=== PATIENT | male | born 1955 | race Caucasian/White ===

== ENCOUNTER 2023-04-29 14:10 | Emergency (ER) | payer OTHER, MEDICAID ==
[~2023-04-29] VITALS: Ht 167.6 cm; Wt 80.9 kg
[2023-04-29 17:02] VITALS: BP 124/62; PULSE 90; RESP 18; TEMP 98.1; O2SAT 98
[2023-04-29] MEDS ORDERED: HYDR-4798 PO (17:53)
[2023-04-29] MEDS ORDERED: IBUP-1455 PO (17:53)
[2023-04-29] MEDS: KETOROLAC TROMETH 60MG/2ML VIAL IM ONE (18:25)
[2023-04-29] MEDS: HYDROcodone-ACET 10/325MG TAB PO ONE (18:25)
== END 2023-04-29 18:33 | disposition home or self-care (01) ==
LOC: EDBD 14:10 → ER 14:10
DX: M25.562 Pain in left knee (principal); M25.561 Pain in right knee; G89.29 Other chronic pain; Z59.00 Homelessness unspecified
CPT/HCPCS: 96372; 99283; J1885

== ENCOUNTER 2023-05-20 17:58 | Emergency (ER) | payer OTHER, MEDICAID ==
[~2023-05-20] VITALS: Ht 167.6 cm; Wt 63.6 kg
[~2023-05-20 17:58] MED LIST: HYDR-4798 PO; IBUP-1455 PO
[2023-05-20 18:04] VITALS: BP 180/76; PULSE 60; RESP 22; O2SAT 95
[2023-05-20] MEDS ORDERED: IBUP-1455 PO (19:49)
[2023-05-20] MEDS ORDERED: HYDR-4798 PO (19:49)
[2023-05-20] MEDS: HYDROcodone-ACET 10/325MG TAB PO ONE (20:32)
== END 2023-05-20 20:33 | disposition home or self-care (01) ==
LOC: EDBD 17:58 → ER 17:58
DX: G89.29 Other chronic pain (principal); M25.562 Pain in left knee; M25.561 Pain in right knee; M54.50 Low back pain, unspecified

== ENCOUNTER 2023-05-21 07:30 | Emergency (ER) | payer OTHER, MEDICAID ==
[~2023-05-21] VITALS: Ht 175.3 cm; Wt 76.3 kg
[2023-05-21 08:02] LABS: Basophils # (auto) 0 10 ^3/uL (0-0.2); Basophils % (auto) 0.6 % (0.0-2.0); Eosinophils # (auto) 0 10 ^3/uL (0-0.8); Eosinophils % (auto) 0.2 % (0.0-7.0); Hematocrit 46.5 % (41.0-53.0); Hemoglobin 15.6 g/dL (13.5-17.5); Lymphocytes # (auto) 2.4 10 ^3/uL (0.4-5.4); Lymphocytes % (auto) 32.4 % (10.0-50.0); Mean Corpuscular Hemoglobin 29.9 pg (28.0-32.0); Mean Corpuscular Hgb Conc. 33.7 g/dL (32.0-36.0); Mean Corpuscular Volume 88.7 fL (80.0-100.0); Monocytes # (auto) 0.7 10 ^3/uL (0-1.3); Neutrophils # (auto) 4.2 10 ^3/uL (1.6-8.6); Neutrophils % (auto) 56.8 % (37.0-80.0); Nucleated Red Blood Cells % 0.3 %; Red Blood Cells 5.23 10^6/uL (4.5-5.90); Red Cell Distribution Width 14.7 % (11.8-14.3); White Blood Cell 7.4 10^3/uL (4.4-10.8)
[2023-05-21 08:26] LABS: Chloride 97 mmol/L (98-107); Potassium 3.7 mmol/L (3.5-5.1); Sodium 134 mmol/L (136-145)
[2023-05-21 08:27] LABS: Anion Gap 8 (5-15); Calcium 9.4 mg/dL (8.5-10.1); Carbon Dioxide 29 mmol/L (20-30)
[2023-05-21 08:32] LABS: BUN/Creatinine Ratio 5.6 (10.0-20.0); Blood Alcohol < 3.0 mg/dL (<10); Blood Urea Nitrogen 5 mg/dL (9-23); Glucose 144 mg/dL (74-106)
[2023-05-21 08:49] VITALS: PULSE 98; RESP 16; O2SAT 95
[2023-05-21] MEDS: IBUPROFEN 800 MG TAB PO ONE (09:19)
[2023-05-21 09:47] LABS: Urine Bacteria NONE SEEN /hpf (None Seen); Urine Blood Negative /uL (Negative); Urine Clarity Clear (Clear); Urine Color Yellow (Yellow); Urine Hyaline Cast FEW /lpf (0 - 2); Urine Mucus FEW (None Seen); Urine Protein, UAD TRACE (Negative); Urine Specific Gravity 1.019 (1.001-1.035); Urine WBC 1 /hpf (0 - 3)
[2023-05-21 11:17] LABS: Amphetamine Screen, Urine Neg (NEGATIVE); Barbiturate Scree,Urine Neg (NEGATIVE); Benzodiazephine Screen, Urine Neg (NEGATIVE); Cannabinoid Screen, Urine Neg (NEGATIVE); Cocaine Screen, Urine Neg (NEGATIVE); Opiate Scree,Urine Pos (NEGATIVE); Phencyclidine Screen, Urine Neg (NEGATIVE)
[2023-05-21 11:40] LABS: Acetaminophen < 2.0 UG/ML (10.0-20.0)
[2023-05-21 11:42] LABS: Salicylate < 3.0 mg/dL (2.8-20.0)
[2023-05-21] MEDS: HYDROcodone-ACET 10/325MG TAB PO ONE (21:29)
[2023-05-22] MEDS: HYDROcodone-ACET 10/325MG TAB PO ONE ×4 (05:54→21:34)
[2023-05-22 07:30] VITALS: PULSE 93; RESP 22; O2SAT 95
[2023-05-22 19:40] VITALS: PULSE 91; RESP 18; O2SAT 94
[2023-05-23] MEDS: HYDROcodone-ACET 10/325MG TAB PO ONE (04:59)
[2023-05-23 07:30] VITALS: RESP 18; O2SAT 94
[2023-05-23] MEDS: HYDROcodone-ACET 5/325MG TAB PO ONE (08:29)
[2023-05-23 15:34] VITALS: BP 130/63; PULSE 84; RESP 18; TEMP 98.1; O2SAT 98
== END 2023-05-23 16:42 ==
LOC: ER 07:30
DX: R45.851 Suicidal ideations (principal); G89.29 Other chronic pain; M54.59 Other low back pain; M25.562 Pain in left knee; M25.561 Pain in right knee; F32.9 Major depressive disorder, single episode, unspecified; Z04.6 Encounter for general psychiatric examination, requested by authority
CPT/HCPCS: 36415; 80048; 80307; 80320; 80329; 81001; 85025